=== PATIENT | female | born 1965 | race Caucasian/White ===

== ENCOUNTER 2016-09-26 11:10 | Outpatient (CLI) | payer MEDICARE, OTHER | END 2016-09-26 11:11 | disposition home or self-care (01) | DX: N94.6 Dysmenorrhea, unspecified (principal) ==

== ENCOUNTER 2016-10-19 13:54 | Outpatient (CLI) | payer MEDICARE, OTHER | END 2016-10-19 13:55 | disposition home or self-care (01) | DX: D64.9 Anemia, unspecified (principal); N94.6 Dysmenorrhea, unspecified ==

== ENCOUNTER 2017-02-09 14:54 | Outpatient (CLI) | payer MEDICARE, OTHER ==
--- NOTE | 2017-02-09 19:25 | XRAY Preliminary Report ---
Exam: XR Chest Special View IMPRESSION: Interval increase in air volume of large left hydropneumothorax with rightward mediastina l shift consistent with tension component. Follow-up imaging demonstrated chest tube placement and re solution of tension component. [facility] SITE ID: [id number]
--- NOTE | 2017-02-09 19:27 | XRAY Report ---
EXAM: CHEST RADIOGRAPHY EXAM DATE: 02/09/2017 03:10 PM. CLINICAL HISTORY: COUGH. COMPARISON: 02/09/2017. TECHNIQUE: 1 view. FINDINGS: Lungs/Pleura: Left hydropneumothorax. Interval increase in volume of air component with rightward med iastinal shift. Mediastinum: Heart size is within normal limits. Other: None. IMPRESSION: Interval increase in air volume of large left hydropneumothorax with rightward mediastina l shift consistent with tension component. Follow-up imaging demonstrated chest tube placement and re solution of tension component. [facility] Referring Provider Line: [phone] SITE ID: [id number]
--- NOTE | 2017-02-09 19:28 | XRAY Preliminary Report ---
Exam: XR Chest 2 View PA/LAT IMPRESSION: Moderate-sized left hydropneumothorax. Follow-up imaging demonstrates placement of chest tube. [facility] SITE ID: [id number]
--- NOTE | 2017-02-09 19:30 | XRAY Report ---
EXAM: CHEST RADIOGRAPHY EXAM DATE: 02/09/2017 03:07 PM. CLINICAL HISTORY: COUGH. COMPARISON: None. TECHNIQUE: 2 views. FINDINGS: Lungs/Pleura: There is a moderate-sized left hydropneumothorax. The right lung is relatively clear. Mediastinum: Heart and mediastinal contours are unremarkable. Other: None. IMPRESSION: Moderate-sized left hydropneumothorax. Follow-up imaging demonstrates placement of chest tube. [facility] Referring Provider Line: [phone] SITE ID: [id number]
== END 2017-02-09 14:55 | disposition home or self-care (01) ==
LOC: DI.S 14:54
PROVIDERS: ATTEND Family Medicine
DX: J94.8 Other specified pleural conditions (principal)
CPT/HCPCS: 71020; 71035; 93005

== ENCOUNTER 2017-02-09 16:51 | Inpatient (IN) | payer MEDICARE, OTHER ==
--- NOTE | 2017-02-09 17:09 | ED Physician Documentation ---
PD HPI DYSPNEA - Stated complaint Stated Complaint: SOA - Chief complaint Chief Complaint: Resp - History obtained from History obtained from: Patient - History of Present Illness Timing - onset: How many days ago (has had 3 days of left chest pain and dyspnea. Hurts to breath. No noted trauma. Onset was nilder and couple days of worsening.) Timing - duration: Days Timing - details: Gradual onset Inciting event(s): No: URI Improved by: No: Rest Worsened by: Exertion Associated symptoms: Cough. No: Fever Similar symptoms before: Has not had sx before Recently seen: Clinic (Dr. Hagan today and had CXR showing large PTX on left side. He talked with Dr. Valentin, who will see patient on her arrival to ED.) Review of Systems Constitutional: denies: Fever, Chills Nose: denies: Rhinorrhea / runny nose, Congestion Throat: denies: Sore throat Respiratory: reports: Dyspnea. denies: Cough GI: denies: Nausea, Vomiting, Diarrhea Skin: denies: Rash, Lesions PD PAST MEDICAL HISTORY - Past Medical History Cardiovascular: None Respiratory: None Neuro: None Endocrine/Autoimmune: None - Allergies Allergies/Adverse Reactions: Allergies Allergy/AdvReac Type Severity Reaction Status Date / Time No Known Drug Allergies Allergy Verified 02/09/17 16:59 PD ED PE NORMAL - Vitals Vital signs reviewed: Yes - General General: Alert and oriented X 3, Well developed/nourished, Other (appears in pain left chest with breating con) - Respiratory Respiratory: No: Clear bilaterally (less sounds left base. Wheezing noted left side. Diminished sounds left side. ) - Abdomen Abdomen: Soft, Non tender Results - Vitals Vitals: Vital Signs - 24 hr 02/09/17 02/09/17 02/09/17 17:00 18:01 18:17 Temperature 36.3 C L 36.6 C Heart Rate 84 84 94 Respiratory 22 15 15 Rate Blood Pressure 127/77 127/70 135/67 H O2 Saturation 100 99 100 02/09/17 18:47 Temperature Heart Rate 84 Respiratory 14 Rate Blood Pressure 116/65 O2 Saturation 98 Oxygen O2 Source Nasal cannula - Labs Labs: Laboratory Tests 02/09/17 02/09/17 17:22 17:22 WBC 11.7 H RBC 4.86 Hgb 13.9 Hct 41.6 MCV 85.7 MCH 28.7 MCHC 33.5 RDW 13.0 Plt Count 393 MPV 7.2 L Neut # 9.3 H Lymph # 1.7 [place] # 0.5 Eos # 0.1 Baso # 0.1 Absolute Nucleated RBC 0.00 Nucleated RBCs 0.0 Sodium 139 Potassium 3.5 Chloride 104 Carbon Dioxide 24 Anion Gap 11.0 BUN 11 Creatinine 0.6 Estimated GFR (MDRD) 106 Glucose 99 Calcium 9.3 Total Bilirubin 0.8 AST 15 ALT 15 Alkaline Phosphatase 71 Total Protein 7.8 Albumin 4.3 Globulin 3.5 Albumin/Globulin Ratio 1.2 Lipase 21 L PD MEDICAL DECISION MAKING - ED course Complexity details: reviewed old records (labs and CXR from yesterday. ), re- evaluated patient, considered differential (Patient seen and I ordeed IV fluids / meds/ pain meds. Will contact Dr. Valentin of patient arrival. ), d/w patient , d/w licensed tax consultant (Dr. Valentin) Departure - Departure Disposition: 66 [facility] DC/Xfer Clinical Impression: Pneumothorax on left Condition: Stable Record reviewed to determine appropriate education?: Yes Discharge Date/Time: 02/09/17 20:55
[2017-02-09] MEDS ORDERED: MORPHINE 2 MG/ML SYRINGE IVP STA ×2 (17:14→17:52)
[2017-02-09] MEDS ORDERED: SODIUM CHLORIDE 0.9% 1,000 ML IV ONE (17:14)
[2017-02-09] MEDS ORDERED: ONDANSETRON 4 MG/2 ML VIAL IVP STA (17:14)
[2017-02-09] MEDS ORDERED: ONDANSETRON 4 MG/2 ML VIAL ONE (17:23)
[2017-02-09] MEDS ORDERED: MORPHINE 2 MG/ML SYRINGE ONE ×2 (17:23→18:04)
[2017-02-09 17:28] LABS: BASOPHILS # (AUTO) 0.1 10^3/uL (0.0-0.1); EOSINOPHILS # (AUTO) 0.1 10^3/uL (0.0-0.7); EOSINOPHILS % (AUTO) 0.7 %; HCT - HEMATOCRIT 41.6 % (37.0-47.0); HGB - HEMOGLOBIN 13.9 g/dL (12.0-16.0); LYMPHOCYTES # (AUTO) 1.7 10^3/uL (1.5-3.5); LYMPHOCYTES % (AUTO) 14.7 %; MEAN CORPUSCULAR HEMOGLOBIN 28.7 pg (27.0-31.0); MEAN CORPUSCULAR HGB CONC 33.5 g/dL (32.0-36.0); MEAN CORPUSCULAR VOLUME 85.7 fL (81.0-99.0); MEAN PLATELET VOLUME 7.2 fL (7.9-10.8); MONOCYTES # (AUTO) 0.5 10^3/uL (0.0-1.0); MONOCYTES % (AUTO) 4.3 %; NEUTROPHILS # (AUTO) 9.3 10^3/uL (1.5-6.6); NEUTROPHILS % (AUTO) 79.3 %; RED BLOOD COUNT 4.86 10^6/uL (4.20-5.40); UNCORRECTED WHITE BLOOD COUNT 11.7 x10^3/uL; WHITE BLOOD COUNT 11.7 x10^3/uL (4.8-10.8)
[2017-02-09 17:41] LABS: ALBUMIN/GLOBULIN RATIO 1.2 (1.0-2.2); BILIRUBIN,TOTAL 0.8 mg/dL (0.2-1.0); CALCIUM 9.3 mg/dL (8.5-10.3); CREATININE 0.6 mg/dL (0.4-1.0); POTASSIUM 3.5 mmol/L (3.5-5.0); TOTAL PROTEIN 7.8 g/dL (6.7-8.2)
[2017-02-09] MEDS ORDERED: MIDAZOLAM 2 MG/2 ML VIAL IVP STA ×3 (17:52→19:21)
[2017-02-09] MEDS ORDERED: MIDAZOLAM 2 MG/2 ML VIAL ONE ×3 (18:04→19:08)
[2017-02-09] MEDS ORDERED: LIDOCAINE 1% 2 ML VIAL ONE (18:19)
[2017-02-09] MEDS ORDERED: HYDROmorphone 1 MG/ML SYRINGE IVP STA (18:30)
[2017-02-09] MEDS ORDERED: HYDROmorphone 1 MG/ML SYRINGE ONE (18:38)
[2017-02-09] MEDS ORDERED: KETOROLAC 30 MG/ML VIAL ONE (19:04)
[2017-02-09] MEDS ORDERED: KETOROLAC 30 MG/ML VIAL IVP STA (19:06)
--- NOTE | 2017-02-09 19:21 | XRAY Preliminary Report ---
Exam: XR Chest 1 View IMPRESSION: Interval placement of left chest tube with resolution of tension component of pneumothora x. Moderate to large size left hydropneumothorax persists with relatively stable volume of aerated loraine ng. [facility] SITE ID: [id number]
--- NOTE | 2017-02-09 19:24 | HISTORY & PHYSICAL EXAMINATION ---
Chief Complaint - Chief Complaint Chief Complaint: SOB History of Present Illness - Admitted From Admitted From:: ED - History Obtained From Records Reviewed: yes History obtained from: patient Exam Limitations: none - History of Present Illness HPI Comment/Other: 51 yo female states she woke up with chest pain yesterday so went to see her PCP who had her obtain a CXR and was found to have a large spontaneous PTX. She denies smoking hx or having endometriosis or history of TB. She c/O SOB was sating well on room air 97% Review of Systems - Constitutional Constitutional: denies: Fatigue, Fever - Eyes Eyes: denies: Pain - Ears, Nose & Throat Ears, Nose & Throat: denies: Ear pain - Respiratory Respiratory: reports: SOB at rest, SOB with exertion - Gastrointestinal Gastrointestinal: denies: Abdominal pain - Genitourinary Genitourinary: denies: Dysuria - Musculoskeletal Musculoskeletal: denies: Muscle pain - Integumentary Integumentary: denies: Rash History - Past Medical History Cardiovascular: reports: None Respiratory: reports: None Neuro: reports: None Endocrine/Autoimmune: reports: None GI: reports: None 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 - Substance History Use: Uses substance without health or social issues: Alcohol - POLST Patient has POLST: No Meds/Allgy - Allergies Allergies/Adverse Reactions: Allergies Allergy/AdvReac Type Severity Reaction Status Date / Time No Known Drug Allergies Allergy Verified 02/09/17 16:59 Exam - Vital Signs Reviewed Vital Signs: Yes Vital Signs: Vital Signs x48h Temp Pulse Resp BP Pulse Ox 02/09/17 18:47 84 14 116/65 98 02/09/17 18:17 94 15 135/67 H 100 02/09/17 18:01 36.6 C 84 15 127/70 99 02/09/17 17:00 36.3 C L 84 22 127/77 100 - Physical Exam General Appearance: positive: No acute distress, Alert Eyes Bilateral: positive: Normal inspection ENT: positive: No signs of dehydration Neck: positive: Nml inspection Respiratory: positive: Other (Absent breath sounds left lung wei) Cardiovascular: positive: Regular rate & rhythm Peripheral Pulses: positive: 2+ Abdomen: positive: Non-tender Skin: positive: Warm, Dry Extremities: positive: Full ROM Conclusion/Plan - Problem List (1) Pneumothorax on left Conclusion/Plan: 51 yo old female with spontaneous left PTX s/p Chest tube placement by surgery in the ED Admit to surgery Continue Chest tube to Pleura vac Pain control Will start Ancef Am CXR, labs DVT prophylaxis Regular diet - Lab Results Fish Bones: 02/09/17 17:22 02/09/17 17:22 - Diagnostic Imaging Results Diagnostic Imaging Results: positive: Read contemporaneously Issues/Core Measures - Anticipated LOS Anticipated Stay Length: 2 or more midnights - DVT/VTE - Prophylaxis VTE/DVT Device ordered at admit?: Yes VTE/DVT Prophylaxis med ordered at admit?: Yes
--- NOTE | 2017-02-09 19:24 | XRAY Report ---
EXAM: CHEST RADIOGRAPHY EXAM DATE: 02/09/2017 06:59 PM. CLINICAL HISTORY: Chest tube placement. COMPARISON: 02/09/2017. TECHNIQUE: 1 view. FINDINGS: Lungs/Pleura: Interval placement left chest tube. The tip projects over the left lateral chest. There is a large left hydropneumothorax. Interval decrease in volume of air component. Volume of expanded lung is not specifically changed as compared to the previous examination. The right lung remains roxana r. Mediastinum: Within exam limitations, cardiomediastinal contour is normal. Other: None. IMPRESSION: Interval placement of left chest tube with resolution of tension component of pneumothora x. Moderate to large size left hydropneumothorax persists with relatively stable volume of aerated loraine ng. [facility] Referring Provider Line: [phone] SITE ID: [id number]
[2017-02-09] MEDS ORDERED: SODIUM CHLORIDE FLUSH 0.9% 10 ML SYRINGE IVP PRN ×2 (19:28→20:59)
[2017-02-09] MEDS ORDERED: HYDROmorphone 1 MG/ML SYRINGE IVP PRN (19:28)
[2017-02-09] MEDS ORDERED: ONDANSETRON ODT 4 MG TABLET TL PRN (19:28)
[2017-02-09] MEDS ORDERED: IBUPROFEN 600 MG TABLET PO PRN ×2 (19:28→20:59)
[2017-02-09] MEDS ORDERED: HYDROcod/ACETAM 5/325 MG TABLET PO PRN (19:28)
--- NOTE | 2017-02-09 19:45 | XRAY Preliminary Report ---
Exam: XR Chest 1 View IMPRESSION: 1. Decrease in size of the left apical pneumothorax, with expected position of left apical chest tube . [facility] SITE ID: [id number]
--- NOTE | 2017-02-09 19:48 | XRAY Report ---
EXAM: CHEST RADIOGRAPHY EXAM DATE: 02/09/2017 07:38 PM. CLINICAL HISTORY: Post chest tube placement. COMPARISON: Radiograph from earlier today. TECHNIQUE: 1 view. FINDINGS: Lungs/Pleura: Decrease in size of the left-sided pneumothorax, now with apical pleural separation of 2.1 cm, compared to 5.4 cm on previous study. No right-sided pneumothorax. Left basal consolidation c ould represent compressive atelectasis. Possible small left basal pleural effusion. Mediastinum: Unchanged heart size and mediastinum. Other: Expected position of repositioned left apical chest tube. IMPRESSION: 1. Decrease in size of the left apical pneumothorax, with expected position of left apical chest tube . [facility] Referring Provider Line: [phone] SITE ID: [id number]
[2017-02-09] MEDS ORDERED: ceFAZolin 2 GM in SODIUM CHLORIDE 0.9% MINIBAG 100 ML IV SCH (20:00)
--- NOTE | 2017-02-09 20:17 | PROCEDURE REPORT ---
Hospitalist Procedure Note - Procedure Note Procedure Note: Date of procedure 02/09/17 Attending: Jurgen Valentin DO Indication: Large left PTX seen on CXR Procedure: Tube Thoracostomy Procedure: Diagnosis discussed with patient. Vitals stable. The risks of the procedure were discussed with the patient including risk of bleeding, infection , injury to other organs, need for reinsertion of tube, chance of having recurrence. All questions answered and patient signed consent. A time-out was completed verifying correct patient, procedure, site, positioning , and special equipment if applicable. The patient was positioned appropriately for chest tube placement. The patients left chest was prepped and draped in sterile fashion. 1% Lidocaine was used to anesthetize the surrounding skin area. A 2 cm skin incision was made in the mid-axillary line at the 4th intercostal space. Utilizing blunt dissection a subcutaneous tunnel was created cephalad just adjacent to the superior rib. The pleural space was entered bluntly and gush of air& fluid was observed. A finger was inserted into the pleural space to check for anatomy and guide tube insertion. A 16F thoracostomy tube was inserted using a Ashley clamp and positioned appropriately. The chest tube was sutured securely to the skin and a sterile dressing applied. A pleurevac was attached to the chest tube and a chest x-ray obtained. Fluid sent for culture. Estimated Blood Loss: 5mL The patient tolerated the procedure well and there were no complications.
[2017-02-09] MEDS: ceFAZolin 2 GM in SODIUM CHLORIDE 0.9% MINIBAG 100 ML IV SCH (21:50)
[2017-02-09] MEDS: HYDROmorphone 1 MG/ML SYRINGE IVP PRN (21:50)
[2017-02-09] MEDS: SODIUM CHLORIDE FLUSH 0.9% 10 ML SYRINGE IVP SCH (21:51)
[2017-02-09] MEDS ORDERED: SODIUM CHLORIDE FLUSH 0.9% 10 ML SYRINGE IVP SCH (22:00)
[2017-02-10] MEDS: HYDROmorphone 1 MG/ML SYRINGE IVP PRN ×3 (02:02→23:33)
[2017-02-10] MEDS: ONDANSETRON ODT 4 MG TABLET TL PRN ×2 (02:03→07:41)
[2017-02-10] MEDS: ceFAZolin 2 GM in SODIUM CHLORIDE 0.9% MINIBAG 100 ML IV SCH ×3 (05:42→21:28)
[2017-02-10] MEDS: SODIUM CHLORIDE FLUSH 0.9% 10 ML SYRINGE IVP SCH ×3 (05:43→21:29)
[2017-02-10] MEDS: HYDROcod/ACETAM 5/325 MG TABLET PO PRN (05:58)
[2017-02-10] MEDS: KETOROLAC 30 MG/ML VIAL IVP PRN ×3 (08:29→19:47)
[2017-02-10] MEDS ORDERED: POLYETHYLENE GLYCOL 3350 17 GM PACKET PO SCH (09:00)
[2017-02-10 09:36] LABS: BASOPHILS % (AUTO) 0.5 %; EOSINOPHILS % (AUTO) 0.3 %; HCT - HEMATOCRIT 38.9 % (37.0-47.0); HGB - HEMOGLOBIN 13.2 g/dL (12.0-16.0); LYMPHOCYTES # (AUTO) 0.9 10^3/uL (1.5-3.5); LYMPHOCYTES % (AUTO) 9.2 %; MEAN CORPUSCULAR HEMOGLOBIN 28.9 pg (27.0-31.0); MEAN CORPUSCULAR HGB CONC 33.9 g/dL (32.0-36.0); MEAN CORPUSCULAR VOLUME 85.2 fL (81.0-99.0); MEAN PLATELET VOLUME 7.3 fL (7.9-10.8); MONOCYTES # (AUTO) 0.3 10^3/uL (0.0-1.0); NEUTROPHILS # (AUTO) 8.2 10^3/uL (1.5-6.6); RED BLOOD COUNT 4.56 10^6/uL (4.20-5.40); RED CELL DISTRIBUTION WIDTH 12.7 % (12.0-15.0); UNCORRECTED WHITE BLOOD COUNT 9.4 x10^3/uL; WHITE BLOOD COUNT 9.4 x10^3/uL (4.8-10.8)
[2017-02-10 09:42] LABS: CALCIUM 8.9 mg/dL (8.5-10.3); CREATININE 0.6 mg/dL (0.4-1.0); POTASSIUM 3.7 mmol/L (3.5-5.0)
--- NOTE | 2017-02-10 10:06 | PROVIDER PROGRESS NOTE ---
Subjective - General Admit Date: 02/09/17 Procedure Date: 02/09/17 Post Op Days: 1 Procedure Performed: Left Thoracostomy tube placement in ED - Review of Systems Wound/Incisions: positive: Drainage (Minimal serosanguenous drainage at chest tube site) Drain Type: left chest tube 16 [place] Drain Output Description: Serosanguenous Approximate mls Output: 50 General: positive: No symptoms HEENT: positive: No symptoms Pulmonary: positive: Cough Cardiovascular: positive: No symptoms Gastrointestinal: positive: No symptoms Genitourinary: positive: No symptoms Skin: positive: No symptoms (Patient seen bedside. States feels better than yesterday. had some nausea and episode of vomiting from pain medications. No othe issues reported.) Psychiatric: positive: No symptoms All Other Systems: positive: Reviewed and negative Objective - Patient Data Reviewed Vital Signs: Yes Vital Signs: Vital Signs x48h Temp Pulse Resp BP Pulse Ox 02/10/17 09:34 36.8 C 79 18 144/83 H 99 Weight: Weight 02/08/17 02/09/17 02/10/17 23:59 23:59 23:59 Weight (kg) 77.111 kg Intake & Output: Intake and Output Totals x24h 02/08/17 02/09/17 02/10/17 23:59 23:59 23:59 Intake Total 50 Output Total 55 400 Balance -55 -350 - Lab Results Lab Results: 02/10/17 09:17 02/10/17 09:17 Other Lab Results: Lab Results x24hrs 02/10/17 02/10/17 Range/Units : 09:17 WBC 9.4 (4.8-10.8) x10^3/uL RBC 4.56 (4.20-5.40) 10^6/uL Hgb 13.2 (12.0-16.0) g/dL Hct 38.9 (37.0-47.0) % MCV 85.2 (81.0-99.0) fL MCH 28.9 (27.0-31.0) pg MCHC 33.9 (32.0-36.0) g/dL RDW 12.7 (12.0-15.0) % Plt Count 341 (130-450) 10^3/uL MPV 7.3 L (7.9-10.8) fL Neut # 8.2 H (1.5-6.6) 10^3/uL Lymph # 0.9 L (1.5-3.5) 10^3/uL [place] # 0.3 (0.0-1.0) 10^3/uL Eos # 0.0 (0.0-0.7) 10^3/uL Baso # 0.0 (0.0-0.1) 10^3/uL Absolute Nucleated RBC 0.00 x10^3/uL Nucleated RBCs 0.0 /100WBC Sodium 139 (135-145) mmol/L Potassium 3.7 (3.5-5.0) mmol/L Chloride 107 (101-111) mmol/L Carbon Dioxide 25 (21-32) mmol/L Anion Gap 7.0 (6-13) BUN 10 (6-20) mg/dL Creatinine 0.6 (0.4-1.0) mg/dL Estimated GFR (MDRD) 106 (>89) Glucose 135 H (70-100) mg/dL Calcium 8.9 (8.5-10.3) mg/dL - Current Medications Current Medications: Current Medications Generic Name Dose Route Start Last Admin Trade Name Freq PRN Reason Stop Dose Admin Acetaminophen/Hydrocodone Bitart 1 tab 02/09/17 20:59 02/10/17 05:58 [place] 5/325 PO 1 tab Q4HR PRN Administration Pain 5 to 7 Hydromorphone HCl 1 mg 02/09/17 20:59 02/10/17 02:02 Dilaudid Inj IVP 1 mg Q2HR PRN Administration Pain 8 to 10 Cefazolin Sodium 2 gm/ Sodium 100 mls @ 200 mls/hr 02/09/17 21:00 02/10/17 05: 42 Chloride IV 02/12/17 19:59 200 mls/hr Q8H CARTER Administration Ketorolac Tromethamine 30 mg 02/10/17 08:07 02/10/17 08:29 Toradol Inj IVP 02/13/17 08:06 30 mg Q6HR PRN Administration PAIN Ondansetron HCl 4 mg 02/09/17 20:59 02/10/17 07:41 Zofran Odt TL 4 mg Q6HR PRN Administration Nausea / Vomiting Sodium Chloride 10 ml 02/09/17 22:00 02/10/17 05:43 Normal Saline Flush 0.9% IVP 10 ml Q8HR CARTER Administration - Physical Exam General Appearance: positive: No acute distress Eyes Bilateral: positive: EOMI ENT: positive: No signs of dehydration Neck: positive: Nml inspection Respiratory: positive: Breath sounds nml (Left Chest tube in place. Dressing changed. Pleura vac to suction no air leaks noted. Serosanguenous out put.) Cardiovascular: positive: Regular rate & rhythm Skin: positive: Warm, Dry Extremities: negative: Calf tenderness, Malu's sign/cords Neurologic/Psychiatric: positive: Oriented x3, CN's nml (2-12) Impression/Plan - Problem List Problem List: 51 yo female s/p spontaneousPTX with chest tube placement in ED Continue chest tube to pleura vac on lws will start lovenox continue pain control.
--- NOTE | 2017-02-10 10:43 | XRAY Report ---
FRONTAL CHEST: 02/10/2017 CLINICAL INDICATION: Chest tube, pneumothorax. COMPARISON: 02/09/2017. FINDINGS: Frontal view of the chest demonstrates interval increase in size of the left pneumothorax. The left chest tube is in stable position. The right lung remains clear. IMPRESSION: INCREASE IN SIZE OF LEFT PNEUMOTHORAX. JOB #: [id number] EXT JOB #:[id number]
[2017-02-10] MEDS: POLYETHYLENE GLYCOL 3350 17 GM PACKET PO SCH (12:40)
[2017-02-10] MEDS: ENOXAPARIN 40 MG/0.4 ML SYRINGE SUBQ SCH (12:42)
[2017-02-11] MEDS: HYDROmorphone 1 MG/ML SYRINGE IVP PRN ×4 (03:44→15:10)
[2017-02-11] MEDS: ceFAZolin 2 GM in SODIUM CHLORIDE 0.9% MINIBAG 100 ML IV SCH ×2 (05:38→13:57)
[2017-02-11] MEDS: SODIUM CHLORIDE FLUSH 0.9% 10 ML SYRINGE IVP SCH ×3 (05:38→22:11)
--- NOTE | 2017-02-11 06:54 | XRAY Preliminary Report ---
Exam: XR Chest 1 View IMPRESSION: Decreasing large left-sided pneumothorax. Left lung base mass again noted. [facility] SITE ID: [id number]
--- NOTE | 2017-02-11 06:56 | XRAY Report ---
EXAM: CHEST RADIOGRAPHY EXAM DATE: 02/11/2017 06:35 AM. CLINICAL HISTORY: Chest tube, pneumothorax COMPARISON: 02/10/2017 TECHNIQUE: 1 view. FINDINGS: Lungs/Pleura: There is a rounded masslike abnormality within the left lung base region, with possible internal cavitation as before. Linear lucencies projecting over the left aspect of the mediastinum, probably pleural gas. Left-sided chest tube again seen. There is a 5 cm left apical pneumothorax, pre viously 6.9 cm. Right lung is without consolidation. No effusion or pneumothorax on the right. Mediastinum: Within exam limitations, cardiomediastinal contour is normal. Other: None. IMPRESSION: Decreasing large left-sided pneumothorax. Left lung base mass again noted. [facility] Referring Provider Line: [phone] SITE ID: [id number]
[2017-02-11] MEDS: HYDROcod/ACETAM 5/325 MG TABLET PO PRN (07:39)
[2017-02-11] MEDS: KETOROLAC 30 MG/ML VIAL IVP PRN (07:39)
--- NOTE | 2017-02-11 07:54 | PROVIDER PROGRESS NOTE ---
Subjective - General Admit Date: 02/09/17 Procedure Date: 02/09/17 Post Op Days: 2 Procedure Performed: Left Thoracostomy tube placement in ED - Review of Systems Wound/Incisions: positive: Drainage (Minimal serosanguenous drainage at chest tube site) Drain Type: left chest tube 16 [place] Drain Output Description: Serosanguenous Approximate mls Output: Minimal General: positive: No symptoms HEENT: positive: No symptoms Pulmonary: positive: No symptoms Cardiovascular: positive: No symptoms Gastrointestinal: positive: No symptoms Genitourinary: positive: No symptoms Musculoskeletal: positive: No symptoms Skin: positive: No symptoms (Patient seen bedside. States feels better than yesterday. had some nausea and episode of vomiting from pain medications. No othe issues reported.) Psychiatric: positive: No symptoms All Other Systems: positive: Reviewed and negative Objective - Patient Data Reviewed Vital Signs: Yes Vital Signs: Vital Signs x48h Temp Pulse Resp BP Pulse Ox 02/11/17 00:12 37 C 70 16 127/78 95 Weight: Weight 02/09/17 02/10/17 02/11/17 23:59 23:59 23:59 Weight (kg) 77.111 kg Intake & Output: Intake and Output Totals x24h 02/09/17 02/10/17 02/11/17 23:59 23:59 23:59 Intake Total 990 575 Output Total 55 455 0 Balance -55 535 575 - Lab Results Lab Results: 02/10/17 09:17 02/10/17 09:17 Other Lab Results: Lab Results x24hrs 02/10/17 02/10/17 Range/Units 09:17 09:17 WBC 9.4 (4.8-10.8) x10^3/uL RBC 4.56 (4.20-5.40) 10^6/uL Hgb 13.2 (12.0-16.0) g/dL Hct 38.9 (37.0-47.0) % MCV 85.2 (81.0-99.0) fL MCH 28.9 (27.0-31.0) pg MCHC 33.9 (32.0-36.0) g/dL RDW 12.7 (12.0-15.0) % Plt Count 341 (130-450) 10^3/uL MPV 7.3 L (7.9-10.8) fL Neut # 8.2 H (1.5-6.6) 10^3/uL Lymph # 0.9 L (1.5-3.5) 10^3/uL [place] # 0.3 (0.0-1.0) 10^3/uL Eos # 0.0 (0.0-0.7) 10^3/uL Baso # 0.0 (0.0-0.1) 10^3/uL Absolute Nucleated RBC 0.00 x10^3/uL Nucleated RBCs 0.0 /100WBC Sodium 139 (135-145) mmol/L Potassium 3.7 (3.5-5.0) mmol/L Chloride 107 (101-111) mmol/L Carbon Dioxide 25 (21-32) mmol/L Anion Gap 7.0 (6-13) BUN 10 (6-20) mg/dL Creatinine 0.6 (0.4-1.0) mg/dL Estimated GFR (MDRD) 106 (>89) Glucose 135 H (70-100) mg/dL Calcium 8.9 (8.5-10.3) mg/dL - Imaging Results Radiology Imaging: positive: Prelim report reviewed, Final report received Imaging Results Comments: Pneumothorax smaller. Cavitation mentioned on film that I CANNOT see mentioned previously. - Current Medications Current Medications: Current Medications Generic Name Dose Route Start Last Admin Trade Name Freq PRN Reason Stop Dose Admin Acetaminophen/Hydrocodone Bitart 1 tab 02/09/17 20:59 02/11/17 07:39 [place] 5/325 PO 1 tab Q4HR PRN Administration Pain 5 to 7 Enoxaparin Sodium 40 mg 02/10/17 11:00 02/10/17 12:42 Lovenox SUBQ Not Given DAILY CARTER Hydromorphone HCl 0.5 mg 02/10/17 20:56 02/11/17 03:44 Dilaudid Inj IVP 0.5 mg Q1HR PRN Administration Pain 8 to 10 Cefazolin Sodium 2 gm/ Sodium 100 mls @ 200 mls/hr 02/09/17 21:00 02/11/17 05: 38 Chloride IV 02/12/17 19:59 200 mls/hr Q8H CARTER Administration Ketorolac Tromethamine 30 mg 02/10/17 08:07 02/11/17 07:39 Toradol Inj IVP 02/13/17 08:06 30 mg Q6HR PRN Administration PAIN Ondansetron HCl 4 mg 02/09/17 20:59 02/10/17 07:41 Zofran Odt TL 4 mg Q6HR PRN Administration Nausea / Vomiting Polyethylene Glycol 17 gm 02/10/17 09:00 02/10/17 12:40 Miralax PO Not Given DAILY CARTER Sodium Chloride 10 ml 02/09/17 20:59 02/10/17 23:33 Normal Saline Flush 0.9% IVP 10 ml PRN PRN Administration NEEDED PER PROVIDER ORDERS Sodium Chloride 10 ml 02/09/17 22:00 02/11/17 05:38 Normal Saline Flush 0.9% IVP 10 ml Q8HR CARTER Administration - Physical Exam Wound/Incisions: positive: Dressing dry and intact General Appearance: positive: No acute distress Eyes Bilateral: positive: No lid inflammation, Conjunctivae nml, No scleral icterus Neck: positive: Trachea midline Respiratory: positive: Other (Decreased on right.) Cardiovascular: positive: Regular rate & rhythm Skin: positive: Color nml Neurologic/Psychiatric: positive: Oriented x3 Impression/Plan - Problem List Problem List: Tube thoracostomy for spontaneous pneumothorax. I would have expected the pneumothorax to be gone and this may be related to tube size. I discussed this with the patient and explained that placving a larger tube may result in earlier discharge. As the patient is improving she does not want a larger tube at this time. I cannot argue with this. For the "new" finding of cavitation on CXR will order a CT scan of chest. Stop labs - not needed. Encourage activity and being up and out of bed.
[2017-02-11] MEDS: ENOXAPARIN 40 MG/0.4 ML SYRINGE SUBQ SCH (09:05)
[2017-02-11] MEDS: POLYETHYLENE GLYCOL 3350 17 GM PACKET PO SCH (09:05)
--- NOTE | 2017-02-11 10:00 | CT Report ---
EXAM: CT CHEST EXAM DATE: 02/11/2017 08:55 AM. CLINICAL HISTORY: Cavitation seen on CXR - spontaneous pneumothorax. COMPARISONS: Chest radiograph dated 02/11/2017. TECHNIQUE: Routine helical CT imaging was performed through the chest. IV contrast: None. Reconstructions: Coron al and sagittal. In accordance with CT protocol optimization, one or more of the following dose reduction techniques w ere utilized for this exam: automated exposure control, adjustment of mA and/or KV based on patient s ize, or use of iterative reconstructive technique. FINDINGS: Lungs/Pleura: Large left-sided hydropneumothorax redemonstrated and similar to the prior examination given differences in technique. Complete collapse of the left lower lobe. Masslike consolidation in t he posterior aspect of the left upper lobe which is difficult to measure adjacent to the pleural effu tracey but likely measures up to 6.2 x 4.7 cm. Mediastinum: The mediastinal structures are midline. No axillary, mediastinal or hilar lymphadenopath y. Bones: Unremarkable. Visualized Abdomen: Unremarkable. Other: None. IMPRESSION: 1. The left-sided chest tube is positioned external to the thoracic cavity with its tip posterior to the left fourth rib in the subcutaneous tissue of the back. 2. Large left sided hydropneumothorax redemonstrated and similar to the prior examination given diffe rences in technique. 3. There is a 6.2 x 4.7 cm mass along the inferior lateral margin of the left upper lobe which is non specific but concerning for neoplasm. 4. Complete collapse of the left lower lobe with air bronchograms. 5. The mediastinal structures are midline with no evidence of tension pneumothorax. 6. No lymphadenopathy. The right lung is well aerated. Findings discussed immediately with Dr. Saenz by phone on 02/11/2017 at 9:54 AM VETO The above critical findings were discussed with provider Dany by Dr. Kya Land at 09:55 hrs on 02/11/17. Referring Provider Line: [phone] SITE ID: [id number]
[2017-02-11] MEDS ORDERED: SODIUM CHLORIDE 0.9% 1,000 ML IV ONE (12:37)
[2017-02-11] MEDS ORDERED: MIDAZOLAM 2 MG/2 ML VIAL IVP ONE (12:54)
[2017-02-11] MEDS ORDERED: PROPOFOL 200 MG/20 ML VIAL IVP ONE (12:54)
[2017-02-11] MEDS ORDERED: KETAMINE 500 MG/10 ML VIAL IVP ONE (12:54)
[2017-02-11] MEDS ORDERED: GLYCOPYRROLATE 1 MG/5 ML VIAL IVP ONE (12:54)
[2017-02-11] MEDS ORDERED: SODIUM CHLORIDE FLUSH 0.9% 10 ML SYRINGE IVP PRN (13:40)
--- NOTE | 2017-02-11 13:45 | XRAY Preliminary Report ---
Exam: XR Chest 1 View IMPRESSION: New left chest tube terminating medially. Interval decrease in left pneumothorax. Persist ent left basilar mass/consolidation. [facility] SITE ID: [id number]
--- NOTE | 2017-02-11 13:47 | XRAY Report ---
EXAM: CHEST RADIOGRAPHY EXAM DATE: 02/11/2017 01:31 PM. CLINICAL HISTORY: New chest tube placed for pneumothorax. COMPARISON: Chest CT 02/11/2017. TECHNIQUE: 1 view. FINDINGS: Lungs/Pleura: Left basilar mass-like consolidation is stable. Left chest tube terminates medially, w ith the tip overlying the aorta. The left apex is excluded. Left pneumothorax appears smaller. Mediastinum: Within exam limitations, cardiomediastinal contour is normal. Other: None. IMPRESSION: New left chest tube terminating medially. Interval decrease in left pneumothorax. Persist ent left basilar mass/consolidation. [facility] Referring Provider Line: [phone] SITE ID: [id number]
[2017-02-11] MEDS ORDERED: SODIUM CHLORIDE FLUSH 0.9% 10 ML SYRINGE IVP SCH (14:00)
[2017-02-11] MEDS ORDERED: fentaNYL PCA 500 MCG IV PRN (15:28)
[2017-02-11] MEDS ORDERED: HYDROmorphone 1 MG/ML SYRINGE IVP PRN (15:33)
[2017-02-11] MEDS: HYDROmorphone PCA 10 MG IV PRN (16:13)
[2017-02-11] MEDS ORDERED: HYDROmorphone 1 MG/ML SYRINGE ONE (16:20)
[2017-02-11] MEDS: ONDANSETRON ODT 4 MG TABLET TL PRN (18:50)
--- NOTE | 2017-02-11 20:16 | OPERATIVE REPORT ---
DATE OF SURGERY: PREOPERATIVE DIAGNOSIS: Malpositioned left chest tube. POSTOPERATIVE DIAGNOSIS: Malpositioned left chest tube along with a lung mass. NAME OF PROCEDURE: Left tube thoracostomy. SURGEON: Yoav Saenz MD [place] [place] ESTIMATED BLOOD LOSS: Zero. FLUIDS: 200 mL of crystalloid. DESCRIPTION OF PROCEDURE: After informed consent was obtained detailing the risks of infection, bleeding with all of its risks including transfusion, and , and after informing both the patient and the that the patient did have a left lower lung mass and this may be the source of her spontaneous pneumothorax, consent was signed for a placement of a left chest tube to replace the one that was malpositioned. With verbal and written consent obtained , the patient was brought to the PACU and kept on her bed. Her head was kept at 30 degrees. A time-in was then done that confirmed the patient's identity by 3 different identifiers including name, date of , and medical record number. We also confirmed the patient's allergies and medications. We confirmed that we had the personnel and equipment required to perform the procedure. We confirmed the operative site. We confirmed that a consent was signed for the procedure. With the agreement of everyone in the room, the procedure was allowed to go forth. The area was prepped and draped in the usual standard manner after the previous chest tube was removed. The skin and subcutaneous tissues were anesthetized using of 10 mL of 0.5% Marcaine. Once the patient was adequately sedated and anesthetized, I probed the wound from the previous chest tube and noted that the tract was moving a bit posteriorly. The more appropriate placement would have been a little bit more anterior. A 24-Czech straight chest tube was obtained, placed between Canales clamps and inserted into the left chest in 1 pass. There was a return of humidified air once the chest was entered. This was then secured to the skin using a 0 silk suture, which was Vineet sandaled about the drain. Additionally, the wound was closed down snug against the chest tube, also using an 0 silk suture. The measurement at the skin was approximately 12 cm. Dressings were applied and the tube was placed to water suction. There was an immediate improvement in the patient's oxygenation from approximately 92% to 99% with the placement of the chest tube. The chest tube was hooked up to the Pleur-Evac. The patient was then taken to the floor having tolerated this procedure well. JOB #: [id number] EXT JOB #:[id number] MTDD
[2017-02-11] MEDS: ceFAZolin 2 GM/50 ML 50 ML IV SCH (22:11)
[2017-02-12] MEDS ORDERED: SODIUM CHLORIDE 0.9% 250 ML IV ONE (01:57)
[2017-02-12] MEDS: ceFAZolin 2 GM/50 ML 50 ML IV SCH (04:44)
[2017-02-12] MEDS: POLYETHYLENE GLYCOL 3350 17 GM PACKET PO SCH (05:06)
[2017-02-12] MEDS: SODIUM CHLORIDE FLUSH 0.9% 10 ML SYRINGE IVP SCH ×3 (06:15→22:23)
[2017-02-12] MEDS: PANTOPRAZOLE 40 MG TABLET PO SCH (06:16)
--- NOTE | 2017-02-12 06:16 | XRAY Preliminary Report ---
Exam: XR Chest 2 View PA/LAT IMPRESSION: 1. Left chest tube in place. Left pneumothorax has increased, now measuring 3.0 cm at the apex. 2. Improved alignment at the left base with residual atelectasis and small left effusion. 3. Mass in the left lower lung field measuring approximately 7 cm. [facility] SITE ID: [id number]
--- NOTE | 2017-02-12 06:19 | XRAY Report ---
EXAM: CHEST RADIOGRAPHY EXAM DATE: 02/12/2017 06:04 AM. CLINICAL HISTORY: Follow-up pneumothorax. COMPARISON: 02/11/2017. TECHNIQUE: 2 views. FINDINGS: Lungs/Pleura: Increased left pneumothorax measuring 3.0 cm at the apex. Improved aeration at the left base. There is some residual left basilar atelectasis and small pleural effusion. Mass in the left l ower lung field measuring approximately 7 cm. Right lung appears clear. Mediastinum: Heart and mediastinal contours are unremarkable. Other: Left chest tube remains in place. IMPRESSION: 1. Left chest tube in place. Left pneumothorax has increased, now measuring 3.0 cm at the apex. 2. Improved alignment at the left base with residual atelectasis and small left effusion. 3. Mass in the left lower lung field measuring approximately 7 cm. [facility] Referring Provider Line: [phone] SITE ID: [id number]
[2017-02-12] MEDS: ONDANSETRON ODT 4 MG TABLET TL PRN (08:25)
[2017-02-12] MEDS: ENOXAPARIN 40 MG/0.4 ML SYRINGE SUBQ SCH (08:26)
[2017-02-12] MEDS ORDERED: SODIUM CHLORIDE 0.9% 500 ML IV ONE (10:21)
--- NOTE | 2017-02-12 12:33 | PROVIDER PROGRESS NOTE ---
Subjective - General Admit Date: 02/09/17 Procedure Date: 02/09/17 Post Op Days: 3 Procedure Performed: Left Thoracostomy tube placement on February 11, 2017 - Review of Systems Wound/Incisions: positive: Dressing dry and intact Drain Type: LEFT chest tube 24 Greenlandic Drain Output Description: Serosanguenous Approximate mls Output: 325 mL General: positive: No symptoms HEENT: positive: No symptoms Pulmonary: positive: No symptoms, Other (Can feel some bubbling in her chest. Doing very well on incentive spirometer.) Cardiovascular: positive: No symptoms Gastrointestinal: positive: No symptoms Genitourinary: positive: No symptoms Musculoskeletal: positive: No symptoms Skin: positive: No symptoms (Patient seen bedside. States feels better than yesterday. had some nausea and episode of vomiting from pain medications. No othe issues reported.) Psychiatric: positive: No symptoms All Other Systems: positive: Reviewed and negative Objective - Patient Data Reviewed Vital Signs: Yes Vital Signs: Vital Signs x48h Temp Pulse Resp BP Pulse Ox 02/12/17 09:00 18 02/12/17 08:18 37.2 C 75 16 118/77 95 02/12/17 06:19 16 02/12/17 04:57 16 Intake & Output: Intake and Output Totals x24h 02/10/17 02/11/17 02/12/17 23:59 23:59 23:59 Intake Total 990 1328 930 Output Total 455 460 10 Balance 535 868 920 - Lab Results Lab Results: 02/10/17 09:17 02/10/17 09:17 - Current Medications Current Medications: Current Medications Generic Name Dose Route Start Last Admin Trade Name Freq PRN Reason Stop Dose Admin Enoxaparin Sodium 40 mg 02/10/17 11:00 02/12/17 08:26 Lovenox SUBQ Not Given DAILY CARTER Hydromorphone HCl 10 mg 02/11/17 15:43 02/11/17 16:13 Dilaudid Senior Firmware Engineer (Use Senior Firmware Engineer Order Set) IV 10 mg PRN PRN Administration PAIN Protocol Cefazolin Sodium/Dextrose 50 mls @ 200 mls/hr 02/11/17 21:00 02/12/17 04:44 Ancef 2 Gm/50 Ml IV 200 mls/hr Q8H CARTER Administration Ondansetron HCl 4 mg 02/09/17 20:59 02/12/17 08:25 Zofran Odt TL 4 mg Q6HR PRN Administration Nausea / Vomiting Pantoprazole Sodium 40 mg 02/12/17 07:00 02/12/17 06:16 Protonix PO 40 mg QDAC CARTER Administration Polyethylene Glycol 17 gm 02/10/17 09:00 02/12/17 05:06 Miralax PO 17 gm DAILY CARTER Administration Sodium Chloride 10 ml 02/09/17 20:59 02/10/17 23:33 Normal Saline Flush 0.9% IVP 10 ml PRN PRN Administration NEEDED PER PROVIDER ORDERS Sodium Chloride 10 ml 02/09/17 22:00 02/12/17 06:15 Normal Saline Flush 0.9% IVP Not Given Q8HR CARTER - Physical Exam Wound/Incisions: positive: Dressing dry and intact General Appearance: positive: No acute distress Eyes Bilateral: positive: No lid inflammation, Conjunctivae nml, No scleral icterus Neck: positive: Trachea midline Respiratory: positive: Chest non-tender (Better breath sounds.) Cardiovascular: positive: Regular rate & rhythm Skin: positive: Color nml Neurologic/Psychiatric: positive: Oriented x3 Impression/Plan - Problem List Problem List: Day 1 s/p placement of 24 Fr chest tube with partial resolution of pneumothorax. Patient has a continual airleak that is almost certainly due to mass in left lower lobe. Send fluid for cytology, cultures including fungal. Discussed plan with patient and . Biopsy of mass should be done and it is almost risk free as the major complication of a CT guided lung biopsy is a pneumothorax and the patient already HAS the pneumothorax and the chest tube. Better and faster approach will be to send patient to Dr. Jian Hodge as if the lesion continues to leak regardless of the etiology resection would be indicated. Will call in the AM. Patient and aware of the plan and in agreement.
[2017-02-12] MEDS: HYDROmorphone PCA 10 MG IV PRN (16:05)
[2017-02-12] MEDS ORDERED: DOCUSATE SODIUM 250 MG CAPSULE PO SCH (17:00)
[2017-02-12] MEDS: SENNA 8.6 MG TABLET PO SCH (17:17)
[2017-02-13] MEDS: SODIUM CHLORIDE FLUSH 0.9% 10 ML SYRINGE IVP SCH (05:02)
[2017-02-13] MEDS: PANTOPRAZOLE 40 MG TABLET PO SCH (06:02)
--- NOTE | 2017-02-13 07:46 | PROVIDER PROGRESS NOTE ---
Subjective - General Admit Date: 02/09/17 Procedure Date: 02/11/17 Post Op Days: 2 Procedure Performed: Left Thoracostomy tube placement on February 11, 2017 - Review of Systems Wound/Incisions: positive: Dressing dry and intact Drain Type: LEFT chest tube 24 Spanish Drain Output Description: Serosanguenous Approximate mls Output: 325 mL General: positive: No symptoms HEENT: positive: No symptoms Pulmonary: positive: No symptoms Cardiovascular: positive: No symptoms Gastrointestinal: positive: No symptoms Genitourinary: positive: No symptoms Musculoskeletal: positive: No symptoms Skin: positive: No symptoms (Patient seen bedside. States feels better than yesterday. had some nausea and episode of vomiting from pain medications. No othe issues reported.) Psychiatric: positive: No symptoms All Other Systems: positive: Reviewed and negative - Other Other Information/Narrative: Pt seen at bedside. Denies any complaints. Tolerating diet, ambulating & pain well controlled. Using IS. Aware of the lung mass seen on CT. No events reported by RN. Objective - Patient Data Reviewed Vital Signs: Yes Vital Signs: Vital Signs x48h Temp Pulse Resp BP Pulse Ox 02/13/17 07:00 16 02/13/17 04:00 37.1 C 77 16 126/79 96 02/13/17 03:00 16 02/13/17 01:00 16 02/13/17 00:00 37.1 C 73 16 121/80 97 Intake & Output: Intake and Output Totals x24h 02/11/17 02/12/17 02/13/17 23:59 23:59 23:59 Intake Total 1328 2209 703 Output Total 460 155 Balance 868 2054 703 - Lab Results Lab Results: 02/10/17 09:17 02/10/17 09:17 - Imaging Results Radiology Imaging: positive: EMP read contemporaneously (Slight improvement in Apical PTX) - Current Medications Current Medications: Current Medications Generic Name Dose Route Start Last Admin Trade Name Freq PRN Reason Stop Dose Admin Enoxaparin Sodium 40 mg 02/10/17 11:00 02/12/17 08:26 Lovenox SUBQ Not Given DAILY CARTER Hydromorphone HCl 10 mg 02/11/17 15:43 02/12/17 16:05 Dilaudid Tobacco Drying Machine Operator (Use Tobacco Drying Machine Operator Order Set) IV 10 mg PRN PRN Administration PAIN Protocol Ondansetron HCl 4 mg 02/09/17 20:59 02/12/17 08:25 Zofran Odt TL 4 mg Q6HR PRN Administration Nausea / Vomiting Pantoprazole Sodium 40 mg 02/12/17 07:00 02/13/17 06:02 Protonix PO 40 mg QDAC CARTER Administration Polyethylene Glycol 17 gm 02/10/17 09:00 02/12/17 05:06 Miralax PO 17 gm DAILY CARTER Administration Senna 8.6 - 17.2 mg 02/12/17 17:00 02/12/17 17:17 Senokot PO 8.6 mg DAILY CARTER Administration Sodium Chloride 10 ml 02/09/17 20:59 02/10/17 23:33 Normal Saline Flush 0.9% IVP 10 ml PRN PRN Administration NEEDED PER PROVIDER ORDERS Sodium Chloride 10 ml 02/09/17 22:00 02/13/17 05:02 Normal Saline Flush 0.9% IVP Not Given Q8HR CARTER - Physical Exam Wound/Incisions: positive: Dressing dry and intact General Appearance: positive: No acute distress Eyes Bilateral: positive: EOMI ENT: positive: No signs of dehydration Neck: positive: No JVD Respiratory: positive: No respiratory distress (Trace rales at left base. Left chest tube to Pleurava on wall suction. Drainage serosanguenous 155ml/ 24 hr. No air Leak noted.), Rales (Trace rales at left base. Left chest tube to Pleurava on wall suction. Drainage serosanguenous. No air Leak noted.) Cardiovascular: positive: Regular rate & rhythm Skin: positive: Warm, Dry Extremities: positive: Nml appearance Neurologic/Psychiatric: positive: Oriented x3, CN's nml (2-12) Impression/Plan - Problem List Problem List: 51 yo female with hx of anxiety now s/p Chest tube for spontaneous pneumothorax and found to have left upper lobe lung mass Continue Chest tube today to pleura vac Cytology and cultures pending Continue IS. OOB as tolerated. AM CXR Continue ROUTER TENDER
--- NOTE | 2017-02-13 08:30 | Discharge Plan ---
Discharge Plan Disposition: 02 Transfer Acute Care Hosp Condition: Fair Diet: Regular Activity Restrictions: No Restrictions Shower Restrictions: No Weight Bearing: Full Weight Additional Instructions or Follow Up instructions: Patient to be transferred to [facility] with left chest tube to Pleura Vac on suction No Smoking: If you smoke, Please STOP! Call for help.
[2017-02-13] MEDS: POLYETHYLENE GLYCOL 3350 17 GM PACKET PO SCH (08:43)
[2017-02-13] MEDS: SENNA 8.6 MG TABLET PO SCH (08:43)
[2017-02-13] MEDS: ENOXAPARIN 40 MG/0.4 ML SYRINGE SUBQ SCH (08:44)
[2017-02-13 09:06] VITALS: BP 119/76
--- NOTE | 2017-02-13 09:07 | XRAY Preliminary Report ---
Exam: XR Chest 1 View IMPRESSION: 1. Left apical pneumothorax measures 2.2 cm, previously 3.0 cm with left-sided chest tube in similar position. 2. Remainder similar. [facility] SITE ID: [id number]
--- NOTE | 2017-02-13 09:10 | XRAY Report ---
EXAM: CHEST RADIOGRAPHY EXAM DATE: 02/13/2017 07:16 AM. CLINICAL HISTORY: Ongiong pneumothorax - continued air leak. COMPARISON: None. TECHNIQUE: 1 view. FINDINGS: Lungs/Pleura: Left apical pneumothorax measuring 2.2 cm, previously 3.0 cm. Left-sided chest tube is similar in position. Mass along the left lateral chest wall is redemonstrated and similar in size and appearance. Mediastinum: Within exam limitations, cardiomediastinal contour is normal. Other: None. IMPRESSION: 1. Left apical pneumothorax measures 2.2 cm, previously 3.0 cm with left-sided chest tube in similar position. 2. Remainder similar. [facility] Referring Provider Line: [phone] SITE ID: [id number]
--- NOTE | 2017-02-13 10:30 | DISCHARGE SUMMARY ---
DATE OF ADMISSION: 02/09/2017 DATE OF DISCHARGE: 02/13/2017 ATTENDING PHYSICIAN: Jurgen Valentin DO CONDITION ON DISCHARGE: Fair. FINAL DIAGNOSIS: Left spontaneous pneumothorax with lung mass. PROCEDURE: Left thoracostomy tube placement. HISTORY OF PRESENT ILLNESS: This is a 51-year-old female with past medical history of anxiety who states on the day of 02/08/2017 she woke up with some chest pain so she went to see her PCP who had obtained a chest x-ray and she was found to have a large spontaneous left-sided pneumothorax, so she was sent to the ED. She denied any smoking history or having any endometriosis or history of TB. 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 Denies any recent history of trauma. She did complain of slight shortness of breath and was saturating well on room air at 97%. LABORATORY DATA: She had a WBC 11.7K on admission which trended to 9.4K. HOSPITAL COURSE: The patient was admitted to inpatient. IV fluids were given. A 16 Anguillan left-sided Apical thoracostomy tube was placed in the emergency department to treat the pneumothorax. The patient was transferred to the floor in stable condition on 2 L Nasal cannula and saturating well on room air; however, 2 days later upon chest x-ray, there was no resolution of the pneumothorax and actually increase in size. A CT scan was performed that showed worsening of the pneumothorax, as well as a left-sided pleural effusion and a mass-like consolidation measuring 6.2 x 4.7 cm. The left-sided chest tube was now also noted to be malpositioned. The patient was taken to the operating room where a 24-Anguillan chest tube was placed on the left side. She was then placed on a DIRECTOR NURSES' REGISTRY postoperatively. Acid-fast and bacterial cultures were sent as well as cytology, which are all pending. The patient's vitals have been stable. She has been with the left-sided chest tube connected to the Pleur-Evac connected to suction. She was deemed that further investigation and treatment is going to be necessary, so she is going to be transferred to [facility] under the care of the cardiothoracic surgery department. JOB #: [id number] [facility] JOB #:[id number] [facility]
== END 2017-02-13 09:45 | disposition short-term general hospital (02) | DRG 167 ==
LOC: ED 16:51 → MS 19:28 → ED 20:55 → MS 02-12 03:28
PROVIDERS: ADMIT Surgery; ATTEND Surgery
PROC: 0B9L30Z Drainage of Left Lung with Drainage Device, Percutaneous Approach (ICD-10-PCS; principal; 2017-02-09)
PROC: 0B9L30Z Drainage of Left Lung with Drainage Device, Percutaneous Approach (ICD-10-PCS; 2017-02-11)
PROC: 0BPLX0Z Removal of Drainage Device from Left Lung, External Approach (ICD-10-PCS; 2017-02-11)
DX: J93.9 Pneumothorax, unspecified (principal); J94.8 Other specified pleural conditions; R07.89 Other chest pain; J93.83 Other pneumothorax; T85.628A Displacement of other specified internal prosthetic devices, implants and grafts, initial encounter; J90 Pleural effusion, not elsewhere classified; Y83.8 Other surgical procedures as the cause of abnormal reaction of the patient, or of later complication, without mention of misadventure at the time of the procedure; Y92.239 Unspecified place in hospital as the place of occurrence of the external cause; F41.9 Anxiety disorder, unspecified; R91.8 Other nonspecific abnormal finding of lung field
CPT/HCPCS: 36415; 71010; 71020; 71035; 71250; 80048; 80053; 83690; 85025; 87070; 87102; 87205; 87206; 88108; 88305; 93005; 96361; 96374; 96375; 96376; 99284

== ENCOUNTER 2017-02-13 09:49 | Outpatient (CLI) | payer MEDICARE, OTHER | END 2017-02-13 09:50 | disposition short-term general hospital (02) | LOC: EMS 09:49 | PROVIDERS: ATTEND Surgery | DX: R07.9 Chest pain, unspecified (principal) | CPT/HCPCS: A0170; A0425; A0426 ==

== ENCOUNTER 2017-04-21 12:23 | Outpatient (CLI) | payer MEDICARE, OTHER ==
--- NOTE | 2017-04-24 08:07 | Ultrasound Report ---
PELVIC ULTRASOUND: 04/21/2017 CLINICAL INDICATION: Sarcoma, question endometrial origin. TECHNIQUE: Transabdominal pelvic ultrasound performed for global evaluation. Transvaginal pelvic ultr asound performed for detailed evaluation. Real-time scanning performed and static images obtained. FINDINGS: The uterus is anteverted, measuring 9.2 x 5.7 x 4.4 cm. The endometrium is thickened and h eterogeneous, measuring up to 3.5 cm, and appears to contain multiple nodular lesions. No focal myome trial lesion is seen. The ovaries are normal, with the right measuring 2.6 x 2.0 x 2.0 cm and the lef t measuring 3.2 x 2.5 x 1.6 cm. No free fluid is present. IMPRESSION: THICKENED, NODULAR ENDOMETRIUM, SUSPICIOUS FOR NEOPLASTIC INVOLVEMENT. JOB #: [id number] EXT JOB #:[id number]
== END 2017-04-21 12:24 | disposition home or self-care (01) ==
LOC: DI 12:23
PROVIDERS: ATTEND Internal Medicine Hematology & Oncology
DX: R93.8 Abnormal findings on diagnostic imaging of other specified body structures (principal); C34.90 Malignant neoplasm of unspecified part of unspecified bronchus or lung
CPT/HCPCS: 76830; 76856

== ENCOUNTER 2017-05-07 16:16 | Outpatient (CLI) | payer MEDICARE, OTHER | END 2017-05-07 16:17 | disposition short-term general hospital (02) | LOC: EMS 16:16 | PROVIDERS: ATTEND Surgery | DX: R07.9 Chest pain, unspecified (principal); M54.9 Dorsalgia, unspecified; R06.02 Shortness of breath | CPT/HCPCS: A0425; A0427 ==

== ENCOUNTER 2017-05-10 13:43 | Outpatient (CLI) | payer MEDICARE, OTHER | END 2017-05-10 13:44 | disposition critical access hospital (66) | LOC: EMS 13:43 | PROVIDERS: ATTEND Surgery | DX: M54.9 Dorsalgia, unspecified (principal); R07.89 Other chest pain | CPT/HCPCS: A0425; A0427 ==

== ENCOUNTER 2017-05-10 14:13 | Emergency (ER) | payer MEDICARE, OTHER ==
[2017-05-10] MEDS ORDERED: HYDROmorphone 1 MG/ML SYRINGE IVP STA ×4 (14:43→19:00)
[2017-05-10] MEDS ORDERED: ONDANSETRON 4 MG/2 ML VIAL IVP STA (14:43)
[2017-05-10] MEDS ORDERED: HYDROmorphone 1 MG/ML SYRINGE ONE ×5 (14:48→19:05)
[2017-05-10] MEDS ORDERED: ONDANSETRON 4 MG/2 ML VIAL ONE (14:48)
[2017-05-10] MEDS ORDERED: SODIUM CHLORIDE 0.9% 1,000 ML IV ONE ×2 (14:55→15:01)
[2017-05-10 15:24] LABS: BASOPHILS # (AUTO) 0.1 10^3/uL (0.0-0.1); BASOPHILS % (AUTO) 0.8 %; EOSINOPHILS # (AUTO) 0.2 10^3/uL (0.0-0.7); EOSINOPHILS % (AUTO) 1.8 %; HCT - HEMATOCRIT 33.3 % (37.0-47.0); HGB - HEMOGLOBIN 10.6 g/dL (12.0-16.0); LYMPHOCYTES # (AUTO) 1.6 10^3/uL (1.5-3.5); LYMPHOCYTES % (AUTO) 12.7 %; MEAN CORPUSCULAR HEMOGLOBIN 24.3 pg (27.0-31.0); MEAN CORPUSCULAR HGB CONC 31.8 g/dL (32.0-36.0); MEAN CORPUSCULAR VOLUME 76.3 fL (81.0-99.0); MEAN PLATELET VOLUME 6.6 fL (7.9-10.8); MONOCYTES # (AUTO) 0.8 10^3/uL (0.0-1.0); MONOCYTES % (AUTO) 6.3 %; NEUTROPHILS # (AUTO) 9.6 10^3/uL (1.5-6.6); NEUTROPHILS % (AUTO) 78.4 %; RED BLOOD COUNT 4.36 10^6/uL (4.20-5.40); RED CELL DISTRIBUTION WIDTH 15.7 % (12.0-15.0); UNCORRECTED WHITE BLOOD COUNT 12.3 x10^3/uL; WHITE BLOOD COUNT 12.3 x10^3/uL (4.8-10.8)
[2017-05-10 15:40] LABS: ALBUMIN/GLOBULIN RATIO 1.1 (1.0-2.2); BILIRUBIN,TOTAL 0.7 mg/dL (0.2-1.0); CALCIUM 9.3 mg/dL (8.5-10.3); CREATININE 0.5 mg/dL (0.4-1.0); POTASSIUM 3.9 mmol/L (3.5-5.0); TOTAL PROTEIN 5.9 g/dL (6.7-8.2)
--- NOTE | 2017-05-10 16:07 | XRAY Preliminary Report ---
Exam: XR Chest 1 View IMPRESSION: Large left pleural effusion with rightward mediastinal shift. Findings are suspicious for tension hemothorax. VETO The above findings were discussed with Dr. Garzon by Dr. Kellee Allen at 16:06 hrs on 05/10/17 . SITE ID: [id number]
--- NOTE | 2017-05-10 16:10 | XRAY Report ---
EXAM: CHEST RADIOGRAPHY EXAM DATE: 05/10/2017 03:30 PM. CLINICAL HISTORY: Left sided pleural effusion. COMPARISON: 02/13/2017. TECHNIQUE: 1 view. FINDINGS: Lungs/Pleura: There is opacification of the left hemithorax which is likely secondary to effusion. Sm all amount of aerated lung seen within the left upper chest. The right lung is relatively clear. No e vidence of pneumothorax. Mediastinum: There is rightward mediastinal shift. Other: None. IMPRESSION: Large left pleural effusion with rightward mediastinal shift. Findings are suspicious for tension hemothorax. [facility] The above findings were discussed with Dr. Garzon by Dr. Kellee Allen at 16:06 hrs on 05/10/17 . Referring Provider Line: [phone] SITE ID: [id number]
--- NOTE | 2017-05-10 16:27 | ED Physician Documentation ---
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 The sarcoma was finally biopsied by bronchoscopy and she is waiting chemotherapy which is supposed to be started tomorrow. She is going to go to [facility]. He presents with a complaint of lower abdominal pain she presents with a complaint of upper abdominal pain which is been present for at least a month but is slowly getting worse. She is on OxyContin 30 mg twice daily with oxycodone for breakthrough pain. Apparently the sarcoma has spread from her left lung into her spine. She has had a pneumothorax on the left that was refractory to multiple chest tubes and more recently she is at [facility] and the attempted a thoracentesis however it was determined on ultrasound that there is no clearly that there is no well-defined tumor well- defined fluid collection and that is all the fluid was loculated. She denies fever chills constipation or diarrhea. She does feel pressure in her chest. Review of systems: For pertinent positive and negatives in the review of systems please see the history of present illness, otherwise all other systems have been reviewed and are negative. Dragon disclaimer: Parts of this medical record were created using voice recognition technology. Because of the inherent limitations of this system, occasional same sounding word substitutions do occur and persist despite proofreading. Please read the document for context. Review of Systems Cardiac: reports: Palpitations Respiratory: reports: Dyspnea GI: reports: Abdominal Pain. 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 - Present Medications Home Medications: Ambulatory Orders Medication Instructions Recorded Confirmed Ferrous Gluconate 324 mg PO TIDWM 02/10/17 05/10/17 Multivitamin [Theragran] 1 tab PO DAILY 02/10/17 05/10/17 Cyclobenzaprine [Flexeril] 10 mg PO Q8H PRN 05/02/17 05/10/17 LORazepam [Ativan] 0.5 - 1 mg PO Q6H PRN 05/02/17 05/10/17 Ondansetron Odt [Zofran Odt] 4 mg PO Q8H PRN 05/02/17 05/10/17 oxyCODONE [Roxicodone] 5 - 10 mg PO Q4H PRN 05/02/17 05/10/17 Benzonatate [Tessalon Perle] 100 mg PO Q8H PRN 05/05/17 05/10/17 Oxycodone HCl [Oxycodone HCl ER] 20 mg PO Q12H PRN 05/05/17 05/10/17 Polyethylene Glycol 3350 [Miralax] 17 gm PO BID 05/05/17 05/10/17 - Allergies Allergies/Adverse Reactions: Allergies Allergy/AdvReac Type Severity Reaction Status Date / Time No Known Drug Allergies Allergy Verified 02/09/17 16:59 - Social History Does the pt smoke?: No Smoking Status: Never smoker - POLST Patient has POLST: No PD ED PE NORMAL - Vitals Vital signs reviewed: Yes - General General: Alert and oriented X 3, No acute distress, Well developed/nourished, Other - HEENT HEENT: Atraumatic (Uncomfortable but nontoxic 51-year-old female in mild distress secondary to pain.) - Neck Neck: Supple, no meningeal sign - Cardiac Cardiac: RRR, No murmur, No gallop, No rub - Respiratory Respiratory: No respiratory distress, Clear bilaterally - Abdomen Abdomen: Normal bowel sounds, Non tender, Non distended - Derm Derm: Normal color, Warm and dry, No rash, Other - Extremities Extremities: No deformity, No tenderness to palpate, Normal ROM s pain, No edema - Neuro Neuro: Alert and oriented X 3, No motor deficit Results - Vitals Vitals: Vital Signs - 24 hr 05/10/17 05/10/17 05/10/17 14:14 17:36 18:33 Temperature 36.6 C Heart Rate 110 H 111 H 112 H Respiratory 26 H 12 23 Rate Blood Pressure 126/87 H 118/85 H 135/91 H O2 Saturation 92 93 95 Oxygen O2 Source Nasal cannula - Labs Labs: Laboratory Tests 05/10/17 05/10/17 15:15 15:15 WBC 12.3 H RBC 4.36 Hgb 10.6 L Hct 33.3 L MCV 76.3 L MCH 24.3 L MCHC 31.8 L RDW 15.7 H Plt Count 577 H MPV 6.6 L Neut # 9.6 H Lymph # 1.6 [place] # 0.8 Eos # 0.2 Baso # 0.1 Absolute Nucleated RBC 0.00 Nucleated RBCs 0.0 Sodium 134 L Potassium 3.9 Chloride 98 L Carbon Dioxide 23 Anion Gap 13.0 BUN 21 H Creatinine 0.5 Estimated GFR (MDRD) 131 Glucose 104 H Calcium 9.3 Total Bilirubin 0.7 AST 21 ALT 16 Alkaline Phosphatase 61 Total Protein 5.9 L Albumin 3.1 L Globulin 2.8 Albumin/Globulin Ratio 1.1 Lipase 40 PD MEDICAL DECISION MAKING - ED course Complexity details: reviewed old records, reviewed results, re-evaluated patient , d/w patient, d/w family ED course: Pleasant but unfortunate 51-year-old woman who is 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 She is pending chemotherapy tomorrow. Her doctors are aware of the tumor size. They have looked at her PET scan which was done last week. The patient came in today with a chief complaint of bilateral upper quadrant abdominal pain. He was given multiple doses of narcotic analgesia to make her pain better. This pain is ongoing and is not new although it is getting more severe and more refractory to her current regiment of OxyContin and oxycodone. She is going to [place] tomorrow to see her oncologist and will get a PICC line and will start chemotherapy. There is a question of possible large pleural effusion on her chest x-ray. I ultrasounded her lung and it is all loculated fluid in fact it appears to be mostly due to tumor. The patient then told me that this was the same conclusion that they reached at [facility] 2 weeks ago when he thought they would attempt a thoracentesis but abandoned the procedure when they determined that there is no appreciable fluid that could be removed. At this point in time the patient's pain was controlled with narcotic analgesia. She is comfortable she is breathing normally. She is on oxygen chronically. The patient was given a copy of her labs and her x-ray. I have recommended that she increase her oxycodone for breakthrough pain from 5 mg to 10 mg as needed. Disposition: To home Clinical impression: 1. Severe bilateral upper quadrant abdominal pain subacute in nature related to the patient's worsening sarcoma 2. Complete opacification of the left lung mainly due to tumor burden. No appreciable fluid on portable ultrasound that was amendable to thoracentesis. Departure - Departure Disposition: 01 Home, Self Care Clinical Impression: Sarcoma Condition: Good Instructions: Abdominal Pain Comments: The sarcoma in her left lung has increased in size significantly since your x- rays here in March. The size of the sarcoma in your left lung is compressing your heart and lungs your right lung. There is no significant pleural fluid on the left side it is all tumor on my ultrasound. you may safely doubled the oxycodone 5 mg that you are taking currently for breakthrough pain you may safely double the oxycodone 5 mg that you are currently taking for breakthrough pain
[2017-05-10 19:32] VITALS: BP 118/83
== END 2017-05-10 19:36 | disposition home or self-care (01) ==
LOC: EDUNIT# → ED 14:13
DX: C34.92 Malignant neoplasm of unspecified part of left bronchus or lung (principal); J90 Pleural effusion, not elsewhere classified
CPT/HCPCS: 36415; 71010; 80053; 83690; 85025; 96374; 96376; 99283; 99284; J1170